=== PATIENT | male | born 1990 ===

== ENCOUNTER 2018-12-29 11:53 | Emergency (ER) | payer OTHER ==
[~2018-12-29] VITALS: Ht 177.8 cm; Wt 93.0 kg
[2018-12-29 12:38] LABS: *BLOOD, URINE 3+ (NEGATIVE); *CLARITY,URINE TURBID (CLEAR); *COLOR,URINE BROWN (YELLOW); UGLUCOSE NEGATIVE (NEGATIVE)
[2018-12-29 12:39] LABS: *BILIRUBIN,URIN 1+ (NEGATIVE); *KETONES,URINE NEGATIVE (NEGATIVE); *UROBILINOGEN,URINE 0.2 E.U./dl (NORMAL); LEUKOCYTE ESTERASE ,URINE TRACE (NEGATIVE); NITRITE, URINE NEGATIVE (NEGATIVE)
[2018-12-29 12:45] LABS: RBC,URINE TNTC /HPF (0-3)
[2018-12-29 12:47] LABS: BACTERIA,URINE MODERATE /HPF (NONE SEEN); YEAST,URINE FEW /HPF (NONE SEEN)
[2018-12-29 12:48] LABS: SQUAMOUS EPITHELIAL CELL,UR FEW /HPF (NONE SEEN); WBC,URINE 0-3 /HPF (0-3)
--- NOTE | 2018-12-29 13:18 | NUR ---
Dr Stevenson at the bedside for MSE.
--- NOTE | 2018-12-29 13:36 | NUR ---
Patient discharged to home in stable conditon. Written and verbal after care instructions given. Patient verbalizes understanding of instructions.
[2018-12-29 13:37] VITALS: BP 122/70
== END 2018-12-29 13:38 | disposition home or self-care (01) ==
LOC: ER 11:55
DX: N20.0 Calculus of kidney (principal)
CPT/HCPCS: 87086; A4663